=== PATIENT | female | born 1995 | race Two or more races ===

== ENCOUNTER 2022-04-04 21:45 | Inpatient (IN) | payer OTHER ==
[2022-04-04] MEDS ORDERED: ACETAMINOPHEN 1000 MG/100 ML BAG IVPB PRN (22:33)
[2022-04-04] MEDS ORDERED: LABETALOL HCL 200 MG TABLET (FP) ONE (22:46)
[2022-04-04] MEDS ORDERED: ACETAMINOPHEN INJECTION 100 ML IVPB ONE (22:46)
[2022-04-04] MEDS: LABETALOL HCL 200 MG TABLET (FP) PO PRN (22:47)
[2022-04-04] MEDS: ELECTROLYTE-148 SOLN 1,000 ML IV SCH (23:26)
[2022-04-04 23:36] LABS: BASO % 0.5 % (0-2.0); EOS % 0.2 % (0-4.5); HEMATOCRIT 38.1 % (32.4-45.2); HEMOGLOBIN 13.5 GM/dL (10.7-15.3); LYMPH % 21.3 % (8-40); MCH 32.9 pg (25.7-33.7); MCHC 35.5 g/dl (32.0-36.0); MEAN CELL VOLUME 92.7 fl (80-96); MEAN PLT VOLUME 10.1 fl (7.5-11.1); MONO % 14.6 % (3.8-10.2); NEUT % 63.4 % (42.8-82.8); PLATELET COUNT 223 10^3/uL (134-434); RBC 4.11 M/mm3 (3.60-5.2); RDW 12.8 % (11.6-15.6); WHITE BLOOD COUNT 9.8 K/mm3 (4.0-10.0)
[2022-04-04 23:58] LABS: BLOOD UREA NITROGEN 24.3 mg/dL (7-18); CALCIUM 7.7 mg/dL (8.5-10.1)
[2022-04-05 00:01] LABS: URIC ACID 7.1 mg/dL (2.6-7.2)
[2022-04-05 00:02] LABS: SGOT/AST 37 U/L (15-37); SGPT/ALT 30 U/L (13-61)
[2022-04-05 00:08] LABS: GAMMA GLUTAMYL TRANSPEPTIDASE 107 U/L (5-85)
[2022-04-05] MEDS: ELECTROLYTE-148 SOLN 1,000 ML IV SCH (06:46)
[2022-04-05] MEDS: LABETALOL HCL 200 MG TABLET (FP) PO PRN (09:09)
[2022-04-05] MEDS ORDERED: LABETALOL HCL 200 MG TABLET (FP) ONE (09:40)
[2022-04-05 11:12] VITALS: RESP 18
[2022-04-05 13:16] VITALS: PULSE 68
[2022-04-05 14:01] VITALS: BP 131/77; TEMP 98.2
== END 2022-04-05 15:33 | disposition home or self-care (01) | DRG 560 ==
LOC: JDEL 21:45 → JLDR 22:35
PROVIDERS: ADMIT Obstetrics & Gynecology; ATTEND Obstetrics & Gynecology
DX: O14.94 Unspecified pre-eclampsia, complicating childbirth (principal); Z3A.33 33 weeks gestation of pregnancy
CPT/HCPCS: 36415; 59025; 80048; 82977; 83010; 84450; 84460; 84550; 85025; 85032; 85045; 85610; 85730; 86780; 86850; 86900; 86901; 96372; C9803-CS; G0463-25; U0003; U0005

== ENCOUNTER 2022-04-08 09:35 | Inpatient (IN) | payer OTHER ==
[2022-04-08] MEDS: ELECTROLYTE-148 SOLN 1,000 ML IV SCH (09:55)
[2022-04-08] MEDS ORDERED: ACETAMINOPHEN 325 MG TABLET (FP) PO PRN (10:17)
[2022-04-08] MEDS ORDERED: SIMETHICONE 80 MG TAB.CHEW (FP) PO PRN (10:17)
[2022-04-08] MEDS ORDERED: CITRIC ACID/SODIUM CITRATE 30 ML UNIT-DOSE CUP PO ONE (10:17)
[2022-04-08] MEDS ORDERED: METHYLERGONOVINE MALEATE 0.2 MG/1 ML AMP IM PRN (10:17)
[2022-04-08] MEDS ORDERED: SENNOSIDES/DOCUSATE COMBO (SENNA PLUS) TABLET (UD) PO PRN (10:17)
[2022-04-08] MEDS ORDERED: LABETALOL HCL 5 MG/1 ML (100MG/20 ML VIAL) IVPB ONE ×2 (10:22→16:00)
[2022-04-08] MEDS ORDERED: OXYTOCIN 20 UNITS in 0.9% NS 20 UNIT/1,000 ML INFUS.BAG IV SCH ×2 (10:30→15:45)
[2022-04-08] MEDS ORDERED: morphine SULFATE/PF 1 MG/2 ML (2cc Syringe - QUVA) ONE (10:33)
[2022-04-08] MEDS ORDERED: PHENYLEPHRINE HCL 10 MG/1 ML SINGLE DOSE VIAL ONE (10:44)
[2022-04-08] MEDS ORDERED: OXYTOCIN 10 UNITS/ML VIAL ONE (10:44)
[2022-04-08] MEDS ORDERED: ceFAZolin SODIUM 1 GM VIAL ONE (10:45)
[2022-04-08] MEDS ORDERED: LIDOCAINE HCL/PF 2% SDV 5ML VIAL ONE (11:03)
[2022-04-08 11:16] LABS: BASO % 0.3 % (0-2.0); EOS % 0.4 % (0-4.5); HEMATOCRIT 38.4 % (32.4-45.2); HEMOGLOBIN 13.1 GM/dL (10.7-15.3); LYMPH % 23.7 % (8-40); MEAN CELL VOLUME 94.1 fl (80-96); MEAN PLT VOLUME 9.8 fl (7.5-11.1); MONO % 10.7 % (3.8-10.2); NEUT % 64.9 % (42.8-82.8); PLATELET COUNT 170 10^3/uL (134-434); RBC 4.08 M/mm3 (3.60-5.2); RDW 13.2 % (11.6-15.6); RETICULOCYTES 3.74 % (0.5-1.5); WHITE BLOOD COUNT 7.8 K/mm3 (4.0-10.0)
[2022-04-08 11:38] LABS: URIC ACID 6.9 mg/dL (2.6-7.2)
[2022-04-08] MEDS ORDERED: KETOROLAC TROMETHAMINE 30 MG/1 ML VIAL ONE (11:38)
[2022-04-08] MEDS ORDERED: OXYTOCIN 20 UNITS in 0.9% NS 20 UNIT/1,000 ML INFUS.BAG IV ONE ×2 (12:05→18:05)
[2022-04-08] MEDS ORDERED: ONDANSETRON 4 MG/2 ML VIAL IVPUSH PRN (12:16)
[2022-04-08] MEDS ORDERED: NIFEdipine E.R. 30 MG TABLET ONE (12:19)
[2022-04-08] MEDS: NIFEdipine E.R. 30 MG TABLET PO SCH (12:20)
[2022-04-08 12:40] LABS: CORD BASE EXCESS -4.4 mmol/L (0-2); CORD HCO3 23.2 mmHg (20-29); CORD PCO2 52.4 mmHg (30-78); CORD pH 7.264 (7.14-7.44)
[2022-04-08 12:42] LABS: CORD PCO2 56.3 mmHg (30-78); CORD pH 7.229 (7.14-7.44)
[2022-04-08] MEDS ORDERED: ACETAMINOPHEN 1000 MG/100 ML BAG IVPB ONE (13:20)
[2022-04-08] MEDS ORDERED: ACETAMINOPHEN INJECTION 100 ML IVPB ONE (13:58)
[2022-04-08] MEDS ORDERED: LABETALOL HCL 200 MG TABLET (FP) PO SCH (14:00)
[2022-04-08 14:06] VITALS: BMI 33.9
[2022-04-08] MEDS ORDERED: LABETALOL HCL 5 MG/1 ML (100MG/20 ML VIAL) ONE (14:08)
[2022-04-08] MEDS ORDERED: MAGNESIUM 4GM/H20 - 4 GM/100 ML IVPB IVPB ONE ×2 (14:56→15:10)
[2022-04-08] MEDS ORDERED: MAGNESIUM SULFATE 20GM/500ML - 20 GM/500 ML INFUS.BAG ONE ×2 (14:56→23:57)
[2022-04-08] MEDS: MAGNESIUM SULFATE 20GM/500ML - 20 GM/500 ML INFUS.BAG IVPB SCH (15:35)
[2022-04-08] MEDS ORDERED: LABETALOL HCL 200 MG TABLET (FP) ONE (20:28)
[2022-04-08] MEDS ORDERED: IBUPROFEN 600 MG TABLET (FP) PO ONE (20:29)
[2022-04-08] MEDS: IBUPROFEN 600 MG TABLET (FP) PO PRN (20:30)
[2022-04-08] MEDS: LABETALOL HCL 200 MG TABLET (FP) PO PRN (20:30)
[2022-04-08] MEDS: FERROUS SO4 325 MG TABLET (FP) PO SCH (22:00)
[2022-04-08] MEDS ORDERED: FERROUS SO4 325 MG TABLET (FP) ONE (22:14)
[2022-04-08] MEDS ORDERED: ACETAMINOPHEN 325 MG TABLET (FP) ONE (23:01)
[2022-04-08] MEDS: ACETAMINOPHEN 325 MG TABLET (FP) PO PRN (23:10)
[2022-04-09] MEDS: ACETAMINOPHEN 325 MG TABLET (FP) PO PRN ×2 (02:51→06:03)
[2022-04-09] MEDS: MAGNESIUM SULFATE 20GM/500ML - 20 GM/500 ML INFUS.BAG IVPB SCH ×2 (04:10)
[2022-04-09] MEDS ORDERED: ACETAMINOPHEN 325 MG TABLET (FP) ONE (06:02)
[2022-04-09] MEDS ORDERED: oxyCODONE HCL 5 MG TABLET ONE (06:22)
[2022-04-09] MEDS: ELECTROLYTE-148 SOLN 1,000 ML IV SCH (08:00)
[2022-04-09] MEDS ORDERED: NIFEdipine E.R. 30 MG TABLET ONE (09:31)
[2022-04-09] MEDS ORDERED: FERROUS SO4 325 MG TABLET (FP) ONE (09:32)
[2022-04-09] MEDS ORDERED: PRENATAL VITAMINS W/ FOLIC ACID TABLET (FP) PO ONE (09:32)
[2022-04-09] MEDS: FERROUS SO4 325 MG TABLET (FP) PO SCH ×2 (09:34→21:44)
[2022-04-09] MEDS: NIFEdipine E.R. 30 MG TABLET PO SCH (09:34)
[2022-04-09] MEDS ORDERED: IBUPROFEN 600 MG TABLET (FP) PO ONE (09:35)
[2022-04-09] MEDS: IBUPROFEN 600 MG TABLET (FP) PO PRN ×2 (09:35→16:38)
[2022-04-09 09:38] LABS: BASO % 0.5 % (0-2.0); EOS % 0.4 % (0-4.5); HEMATOCRIT 41.4 % (32.4-45.2); HEMOGLOBIN 14.2 GM/dL (10.7-15.3); LYMPH % 17.3 % (8-40); MCH 32.3 pg (25.7-33.7); MCHC 34.3 g/dl (32.0-36.0); MEAN CELL VOLUME 94.3 fl (80-96); MEAN PLT VOLUME 9.6 fl (7.5-11.1); MONO % 4.4 % (3.8-10.2); NEUT % 77.4 % (42.8-82.8); PLATELET COUNT 166 10^3/uL (134-434); RBC 4.39 M/mm3 (3.60-5.2); RDW 13.5 % (11.6-15.6); WHITE BLOOD COUNT 9.3 K/mm3 (4.0-10.0)
[2022-04-09] MEDS ORDERED: PRENATAL VITAMINS W/ FOLIC ACID TABLET (FP) PO SCH (10:00)
[2022-04-09] MEDS ORDERED: oxyCODONE HCL 5 MG TABLET PO PRN ×4 (10:00→15:45)
[2022-04-09] MEDS ORDERED: BISACODYL 10 MG SUPP.RECT RC PRN ×2 (10:17→15:45)
[2022-04-09] MEDS: LABETALOL HCL 200 MG TABLET (FP) PO PRN ×2 (13:36→21:50)
[2022-04-09] MEDS ORDERED: METHYLERGONOVINE MALEATE 0.2 MG/1 ML AMP IM PRN (15:45)
[2022-04-09] MEDS ORDERED: ONDANSETRON 4 MG/2 ML VIAL IVPUSH PRN (15:45)
[2022-04-09] MEDS ORDERED: ACETAMINOPHEN 325 MG TABLET (FP) PO PRN (15:45)
[2022-04-09] MEDS ORDERED: ELECTROLYTE-148 SOLN 1,000 ML IV SCH (15:45)
[2022-04-09] MEDS: SIMETHICONE 80 MG TAB.CHEW (FP) PO PRN ×2 (16:39→21:44)
[2022-04-09] MEDS: SENNOSIDES/DOCUSATE COMBO (SENNA PLUS) TABLET (UD) PO PRN (21:46)
[2022-04-10] MEDS: SIMETHICONE 80 MG TAB.CHEW (FP) PO PRN ×3 (06:17→20:00)
[2022-04-10] MEDS: LABETALOL HCL 200 MG TABLET (FP) PO PRN ×3 (06:17→22:18)
[2022-04-10] MEDS ORDERED: FLU VACC QS2022-23(6MOS UP)/PF 60 MCG/0.5 ML SYRINGE IM ONE (10:00)
[2022-04-10] MEDS: PRENATAL VITAMINS W/ FOLIC ACID TABLET (FP) PO SCH (11:00)
[2022-04-10] MEDS: FERROUS SO4 325 MG TABLET (FP) PO SCH ×2 (11:08→22:10)
[2022-04-10] MEDS: NIFEdipine E.R. 30 MG TABLET PO SCH (11:09)
[2022-04-10] MEDS: IBUPROFEN 600 MG TABLET (FP) PO PRN ×2 (11:17→20:00)
[2022-04-10] MEDS: SENNOSIDES/DOCUSATE COMBO (SENNA PLUS) TABLET (UD) PO PRN (20:03)
[2022-04-11] MEDS: SIMETHICONE 80 MG TAB.CHEW (FP) PO PRN ×2 (00:25→10:12)
[2022-04-11] MEDS: IBUPROFEN 600 MG TABLET (FP) PO PRN (00:25)
[2022-04-11 08:48] LABS: BASO % 0.4 % (0-2.0); EOS % 0.7 % (0-4.5); HEMATOCRIT 33.3 % (32.4-45.2); LYMPH % 21.4 % (8-40); MCH 31.4 pg (25.7-33.7); MCHC 33.1 g/dl (32.0-36.0); MEAN CELL VOLUME 94.9 fl (80-96); MEAN PLT VOLUME 9.8 fl (7.5-11.1); MONO % 7.9 % (3.8-10.2); NEUT % 69.6 % (42.8-82.8); PLATELET COUNT 144 10^3/uL (134-434); RBC 3.51 M/mm3 (3.60-5.2); RDW 13.6 % (11.6-15.6); WHITE BLOOD COUNT 6.5 K/mm3 (4.0-10.0)
[2022-04-11] MEDS: FERROUS SO4 325 MG TABLET (FP) PO SCH (10:13)
[2022-04-11] MEDS: NIFEdipine E.R. 30 MG TABLET PO SCH (10:13)
[2022-04-11] MEDS: PRENATAL VITAMINS W/ FOLIC ACID TABLET (FP) PO SCH (10:15)
[2022-04-11] MEDS ORDERED: ACETAMINOPHEN INJECTION 100 ML IVPB ONE (11:32)
[2022-04-11] MEDS ORDERED: OXYTOCIN 20 UNITS in 0.9% NS 20 UNIT/1,000 ML INFUS.BAG IV ONE (11:34)
[2022-04-11] MEDS: LABETALOL HCL 200 MG TABLET (FP) PO PRN (13:28)
[2022-04-11 13:29] VITALS: BP 134/80; PULSE 76; RESP 18; TEMP 99
== END 2022-04-11 14:50 | disposition home or self-care (01) | DRG 540 ==
LOC: JDEL 09:35 → JLDR 09:55 → J3W 04-09 12:30
PROVIDERS: ADMIT Obstetrics & Gynecology; ATTEND Obstetrics & Gynecology
PROC: 10D00Z1 Extraction of Products of Conception, Low, Open Approach (ICD-10-PCS; principal; 2022-04-08)
DX: O14.14 Severe pre-eclampsia complicating childbirth (principal); O60.14X0 Preterm labor third trimester with preterm delivery third trimester, not applicable or unspecified; O41.03X0 Oligohydramnios, third trimester, not applicable or unspecified; O36.8330 Maternal care for abnormalities of the fetal heart rate or rhythm, third trimester, not applicable or unspecified; Z3A.34 34 weeks gestation of pregnancy; O36.5930 Maternal care for other known or suspected poor fetal growth, third trimester, not applicable or unspecified; Z37.0 Single live birth
CPT/HCPCS: 36415; 36600; 82803; 82977; 83010; 84450; 84460; 84550; 85025; 85045; 86850; 86900; 86901; 88307-TC; C9803-CS; G0008; Q2036; U0003; U0005

== ENCOUNTER 2022-04-24 22:03 | Emergency (ER) | payer OTHER ==
[2022-04-24 22:09] VITALS: BP 117/76; PULSE 82; RESP 20; TEMP 98.5; BMI 28.3
== END 2022-04-24 22:37 | disposition home or self-care (01) ==
LOC: JERFT 22:03
DX: Z11.52 Encounter for screening for COVID-19 (principal)
CPT/HCPCS: 0241U-QW; 99283-25

== ENCOUNTER 2024-10-21 16:39 | Emergency (ER) | payer OTHER ==
[2024-10-21 16:55] VITALS: BP 119/99; PULSE 71; RESP 18; TEMP 98.5; BMI 29.1
[2024-10-21 17:29] LABS: ABSOLUTE IMMATURE GRANULOCYTES 0.02 x10^3/uL (0.0-0.031); BASOPHILS # 0.02 x10^3/uL (0.01-0.08); EOSINOPHIL % 0.7 % (0.7-5.8); EOSINOPHILS # 0.04 x10^3/uL (0.04-0.36); HEMATOCRIT 34.4 % (34.1-44.9); HEMOGLOBIN 11.1 g/dL (11.2-15.7); MCHC 32.3 g/dl (32.2-35.5); MEAN CELL VOLUME 88.9 fl (79.4-94.8); MEAN PLT VOLUME 10.2 fl (9.4-12.3); MONOCYTE # 0.36 x10^3/uL (0.24-0.86); MONOCYTE % 5.9 % (4.7-12.5); PLATELET COUNT 243 x10^3/uL (182-369); RDW 12.8 % (12.1-16.5)
[2024-10-21 17:39] LABS: INR 1.07 (0.83-1.09); PROTHROMBIN TIME (PATIENT) 11.8 SEC (9.7-13.0)
[2024-10-21 17:41] LABS: ACTIVATED PTT 32.1 SECONDS (25.2-36.5)
[2024-10-21] MEDS ORDERED: ACETAMINOPHEN INJECTION 100 ML ONE (17:48)
[2024-10-21 18:22] LABS: POTASSIUM 3.7 mmol/L (3.5-5.1)
[2024-10-21 18:24] LABS: CALCIUM 9.3 mg/dL (8.5-10.1)
[2024-10-21 18:25] LABS: ALBUMIN 3.9 g/dl (3.4-5.0); BLOOD UREA NITROGEN 11.3 mg/dL (7-18)
[2024-10-21] MEDS: SODIUM CHLORIDE 1,000 ML IV STA (18:27)
[2024-10-21] MEDS: ACETAMINOPHEN 1000 MG/100 ML BAG IVPB ONE (18:27)
[2024-10-21 18:28] LABS: CREATININE 0.7 mg/dL (0.55-1.3)
[2024-10-21 18:30] LABS: BILIRUBIN,TOTAL 0.9 mg/dL (0.2-1); TOT PROT 7.3 g/dl (6.4-8.2)
[2024-10-21 18:40] LABS: HCG,QUALITATIVE URINE Negative
[2024-10-21 18:43] LABS: EPI CELLS 2 /uL (0-25.1); HYALINE CASTS 0 /uL (0-3.1); PH,URINE 6.5 (5.0-8.0); URINE APPEARANCE CLEAR; URINE BACTERIA 20 /uL (0-1359); URINE BILIRUBIN NEGATIVE (NEGATIVE); URINE COLOR YELLOW; URINE GLUCOSE (UA) NEGATIVE (NEGATIVE); URINE KETONE NEGATIVE (NEGATIVE); URINE LEUK ESTERASE NEGATIVE (NEGATIVE); URINE NITRITE NEGATIVE (NEGATIVE); URINE PROTEIN NEGATIVE (NEGATIVE); URINE RBC 9 /uL (0-23.9); URINE UROBILINOGEN 0.2 mg/dL (0.2-1.0); URINE WBC 1 /uL (0-25.8)
== END 2024-10-21 18:58 | disposition home or self-care (01) ==
LOC: JER 16:39
PROC: 3E033NZ Introduction of Analgesics, Hypnotics, Sedatives into Peripheral Vein, Percutaneous Approach (ICD-10-PCS; principal; 2024-10-21)
PROC: 3E0337Z Introduction of Electrolytic and Water Balance Substance into Peripheral Vein, Percutaneous Approach (ICD-10-PCS; 2024-10-21)
DX: O03.9 Complete or unspecified spontaneous abortion without complication (principal)
CPT/HCPCS: 36415; 76817-TC; 80053; 81003; 84702; 84703; 85025; 85610; 85730; 86850; 86900; 86901; 87086; 99285-25; J0131